=== PATIENT | male | born 1975 | race Caucasian/White ===

== ENCOUNTER 2020-12-04 16:30 | Observation (INO) | payer SELFPAY ==
--- NOTE | ~2020-12-04 | XR_ITS ---
XR chest 2V DATE: 12/04/2020 18:05 INDICATION: Weakness TECHNIQUE: AP and lateral views COMPARISON: None available FINDINGS: Normal heart size. No hilar or mediastinal enlargement. Bilateral hyperinflation. No pulmon yesi infiltrate or consolidation, pleural effusion or pulmonary vascular congestion or pneumothorax. IMPRESSION: No active cardiopulmonary disease Reviewed, dictated and finalized at location [facility].
--- NOTE | ~2020-12-04 | CT_ITS ---
EXAMINATION: CT abdomen pelvis w con DATE: 12/04/2020 18:10 INDICATION: Abdominal pain, nausea, vomiting. Diabetes mellitus. Drug user. TECHNIQUE: Computed tomography (CT) of the abdomen and pelvis was performed without intravenous contr ast. Automated exposure control and iterative reconstruction technique were employed. Exam dose: 292 .65 mGy-cm total exam DLP. COMPARISON: None. FINDINGS: The lung bases are clear of infiltrate or consolidation. Normal heart size. No pericardial or pleural effusion. Small sliding hiatal hernia. There are numerous radiopaque sutures in the small bowel in the left mid to lower abdomen. 1 small florinda wel segment in this region measures up to 2.3 cm diameter, with a prominent fluid level. This may be chronic postoperative change or might be secondary to mild partial small bowel obstruction, possibly due to adhesions. The small and large bowel otherwise are of normal caliber. There is a prominent amount of fecal mater ial within the colon but no bowel obstruction. There is diverticulosis of the colon but no evidence o f diverticulitis. No CT evidence of appendicitis. The urinary bladder and prostate gland are unremarkable. The liver, gallbladder, bile ducts, spleen, pancreas and pancreatic duct as well as adrenal glands an d right kidney are unremarkable. There is incomplete rotation of the left kidney with the left renal pelvis directed anteroposteriorly . No urinary tract calculus or hydroureteronephrosis is evident. Included skeletal structures are unremarkable. IMPRESSION: Postoperative change of small bowel in the mid to lower left abdomen. Focal relative dilatation and air-fluid level in the postoperative area, which may be due to chronic postoperative change or possibly mild partial obstruction secondary to adhesion Reviewed, dictated and finalized at [facility]. Reviewed, dictated and finalized at location A. IMPRESSION: Postoperative change of small bowel in the mid to lower left abdom en. Focal relative dilatation and air-fluid level in the postoperative area, which may be due to chronic postoperative change or possibly mild partial obstruction secondary to adhesion
--- NOTE | 2020-12-04 16:36 | ECG_ITS ---
Measurements Intervals [place] Rate: 98 P: 76 DE: 148 QRS: 107 QRSD: 105 T: 78 QT: 398 QTc: 509 Interpretive Statements SINUS RHYTHM POSSIBLE LEFT ATRIAL ENLARGEMENT RIGHT AXIS DEVIATION INCOMPLETE RIGHT BUNDLE BRANCH BLOCK NONSPECIFIC ST ELEVATION IN ANTEROLAT/INF LEADS BASELINE ARTIFACT- I, II, III, V1-V2 BORDERLINE ECG Electronically Signed On 12-05-2020 19:27:11 CDT by Levar Lovelace D.O.
[2020-12-04] MEDS: SODIUM CHLORIDE 0.9% IV 1,000 ML 999 ML IV CONT (16:56)
[2020-12-04] MEDS: ONDANSETRON INJ 4 MG/2 ML VIAL IV PUSH ×2 (16:57→23:36)
[2020-12-04 16:58] VITALS: BP 176/106; PULSE 88; RESP 20; TEMP 36.2; O2SAT 100
[2020-12-04 17:08] LABS: Basophils Absolute Auto 0.05 K/mm3 (0.00-0.10); Basophils Percent Auto 0.4 % (0.0-1.0); Eosinophils Absolute Auto 0.04 K/mm3 (0.02-0.50); Eosinophils Percent Auto 0.3 % (1.0-6.0); Hemoglobin 16.3 g/dL (14.0-18.0); Immature Granulocyte Absolute 0.05 K/mm3 (0.00-0.00); Immature Granulocyte Percent A 0.4 % (0.0-0.0); Lymphocytes Absolute Auto 1.75 K/mm3 (1.10-4.50); Lymphocytes Percent Auto 14.1 % (18.0-42.0); Mean Corpuscular HGB Conc 34.7 g/dL (32.0-36.0); Mean Corpuscular Hemoglobin 30.8 pg (27.0-31.0); Mean Corpuscular Volume 88.8 fL (78.0-102.0); Mean Platelet Volume 9.1 fl (8.7-11.0); Monocytes Percent Auto 6.4 % (2.0-11.0); Neutrophils Absolute Auto 9.7 K/mm3 (1.7-7.2); Neutrophils Percent Auto 78.4 % (50.0-70.0); Platelet Count Result 406 K/mm3 (150-420); Red Blood Count 5.29 M/mm3 (4.70-6.10); Red Cell Distribution Width 12.1 % (11.6-14.4); White Blood Count 12.4 K/mm3 (4.8-10.8)
[2020-12-04 17:21] LABS: INR 1.1; Partial Thromboplastin Time 25.2 SEC (23.90-30.70); Prothrombin Time 11.4 Seconds (9.50-12.10)
[2020-12-04 17:24] LABS: Alanine Aminotransferase 79 U/L (16-63); Albumin Level 4.1 g/dL (3.4-5.0); Alkaline Phosphatase 186 U/L (46-116); Anion Gap 16 mmol/L (8-16); Aspartate Amino Transferase 30 U/L (15-37); Bilirubin,Total 2.5 mg/dL (0.00-1.00); Blood Urea Nitrogen 22 mg/dL (7-18); Calcium 10.1 mg/dL (8.5-10.1); Carbon Dioxide 25 mmol/L (21-32); Chloride 101 mmol/L (98-108); Estimated CRCL calculation 63 ml/min; Estimated Glomerular Filt Rate > 60; Glucose 272 mg/dL (70-99); Lipase 96 U/L (73-393); Osmolality Calculated 307 mOsm/kg (285-295); Potassium 3.5 mmol/L (3.5-5.1); SARS-CoV-2 Ag Negative (Negative); Sodium 142 mmol/L (136-145); Total Protein 8.4 g/dL (6.4-8.2); Troponin I 7.1 ng/L (0.00-60.4)
--- NOTE | 2020-12-04 17:34 | ED.NAVMDI ---
HPI - Nausea/Vomiting/Diarrhea General Chief complaint: Nausea/Vomiting/Diarrhea Stated complaint: nausea Source: patient Mode of arrival: EMS Limitations: no limitations History of Present Illness HPI Narrative: this is a 45-year-old gentleman that was at a rest stop in his pickup truck when the windows closed and reported to the EMS that he was having nausea vomiting and was feeling shaky and weak, denied any shortness of breath does have some weakness belly pain was elicited with palpation had few episodes of vomiting with nausea patient is a known drug user, with no flank pain and O2 no diarrhea constipation no chest pain no fever chills. with a known history of diabetes currently on Lantus insulin. MD elicited complaint: nausea, vomiting and abdominal pain Onset (ago): hour(s) Associated nausea: Yes Associated abdominal pain: Yes Location of pain: diffuse Pain consistency: intermittent Severity: moderate Pain scale (0-10): 5 Related Data Home Medications Medication Instructions Recorded Confirmed insulin aspart U-100 [Novolog 1 sliding scale dose SUBCUT 12/04/20 12/04/20 U-100 Insulin aspart] USEASDIRECTD insulin detemir U-100 [Levemir 10 unit SUBCUT HS 12/04/20 12/04/20 FlexTouch U-100 Insuln] Allergies Allergy/AdvReac Type Severity Reaction Status Date / Time No Known Allergies Allergy Verified 12/04/20 17:11 Review of Systems Review of Systems: All systems reviewed & are unremarkable except as noted in HPI and below PMFSH Past Medical History Medical History (Updated 12/04/20 @ 19:17 by Carlos Payne MD) Diabetes mellitus Drug abuse HTN (hypertension) Exam Const: General: no acute distress and alert Orientation/consciousness: patient oriented x3 HENMT: Head: normal to inspection Eyes: Pupils: Equal, round and reactive pupils present Neck: Neck: normal visual inspection, no lymphadenopathy and no meningeal signs Chest: Chest palpation & inspection: normal inspection of the chest Resp: Effort & Inspection: normal respiratory effort Auscultation: clear to auscultation bilaterally Cardio: Rate: regular rate Rhythm: regular rhythm GI: GI Palp: Yes Soft to palpation and Yes Tenderness to palpation present (GI) Back/Spine/Pelvis: Back: no CVA tenderness Skin: General skin exam: normal color Rashes: no rashes Neuro: General: patient oriented x3, moves all extremities, no meningeal signs and no focal motor deficits Extrem: General: normal to inspection and no pedal edema Psych: Mental Status: mental status grossly normal Affect: normal affect Course Course Emergency Course: Lab findings and CT scan and x-ray findings were reviewed with patient, patient received IV fluids and IV Zofran which his nausea has improved. Vital Signs Vital signs: Vital Signs Temperature 36.2 C L 12/04/20 16:58 Pulse Rate 88 12/04/20 16:58 Respiratory Rate 20 12/04/20 16:58 Blood Pressure 176/106 H 12/04/20 16:58 Pulse Oximetry 100 12/04/20 16:58 Temperature 36.2 C L 12/04/20 16:58 Pulse Rate 88 12/04/20 16:58 Respiratory Rate 20 12/04/20 16:58 Blood Pressure 176/106 H 12/04/20 16:58 Pulse Oximetry 100 12/04/20 16:58 MDM - Nausea/Vomiting/Diarrhea Lab Data Result diagrams: 12/04/20 16:56 12/04/20 16:56 Labs: Lab Results 12/04/20 12/04/20 12/04/20 Range/Units 16:56 16:56 16:56 WBC 12.4 H (4.8-10.8) K/mm3 RBC 5.29 (4.70-6.10) M/mm3 Hgb 16.3 (14.0-18.0) g/dL Hct 47.0 (40.0-54.0) % MCV 88.8 (78.0-102.0) fL MCH 30.8 (27.0-31.0) pg MCHC 34.7 (32.0-36.0) g/dL RDW 12.1 (11.6-14.4) % Plt Count 406 (150-420) K/mm3 MPV 9.1 (8.7-11.0) fl Immature Gran % (Auto) 0.4 H (0.0-0.0) % Neut % (Auto) 78.4 H (50.0-70.0) % Lymph % (Auto) 14.1 L (18.0-42.0) % Trigg % (Auto) 6.4 (2.0-11.0) % Eos % (Auto) 0.3 L (1.0-6.0) % Baso % (Auto) 0.4 (0.0-1.0) % Lymph
[2020-12-04 17:40] LABS: Add Urine Microscopic? YES; Appearance Urine Clear (Clear); Bilirubin Urine Negative (Negative); Blood Urine Negative (Negative); Color Urine Light Yellow (Yellow); Glucose Urine UA 3+ (Negative); Ketones Urine 3+ (Negative); Leukocyte Esterase Ur Negative (Negative); Nitrate Urine Negative (Negative); Protein Urine Negative (Negative); Specific Grav Ur 1.015 (1.010-1.020); Urobilinogen Urine 0.2 mg/dL (0.2-1.0); pH Urine >=9.0 (5.0-8.0)
[2020-12-04 17:46] LABS: Amorphous Sediment Urine Few; Bacteria Urine Trace /hpf; RBC Urine 0-2 /hpf (0-2); Squamous Epithelial Cell Urine Rare /hpf (Few); WBC Urine 0-3 /hpf (0-3)
[2020-12-04 17:47] LABS: Amphetamine Screen Urine Positive (Negative); Barbiturate Screen Urine Negative (Negative); Benzodiazepines Screen Urine Negative (Negative); Cannabinoid Screen Urine Positive (Negative); Cocaine Screen Urine Negative (Negative); Methadone Screen Urine Negative (Negative); Opiate Screen Urine Negative (Negative); Phencyclidine Screen Urine Negative (Negative)
[2020-12-04 18:00] VITALS: BP 163/112; PULSE 88; RESP 20; O2SAT 100
[2020-12-04 19:00] VITALS: BP 168/108; PULSE 83; RESP 20; O2SAT 100
[2020-12-04 20:00] VITALS: BP 164/103; PULSE 95; RESP 22; TEMP 35.9; O2SAT 100
[2020-12-04 20:01] LABS: Reflex Lactic Acid Yes or No Add Lactic
[2020-12-04] MEDS: SODIUM CHLORIDE 0.9% IV 1,000 ML 100 ML IV CONT (20:16)
[2020-12-04] MEDS: MORPHINE SULFATE (*CRX) 2 MG/ML INJ IV PUSH (20:18)
--- NOTE | 2020-12-04 20:52 | PC.NURSE ---
Patient admitted to room 204 from the ER , is alert and oriented x 3, pain med given, oriented to room and call light, NPO at this time.
[2020-12-04 20:55] VITALS: BMI 19.0
[2020-12-04 20:58] LABS: Lactic Acid 2.5 mmol/L (0.4-2.0)
[2020-12-04 20:59] VITALS: BMI 19.0
--- NOTE | 2020-12-04 21:03 | PC.NURSE ---
pharmacy called to ask about switching levemir to lantus, dr notified they need a doctors order to do so
[2020-12-04 21:08] LABS: Glucose Point of Care 206 mg/dl (65-105)
[2020-12-04] MEDS: INSULIN GLARGINE (*BKC) 100 UNITS/ML 10 UNITS SUB-Q (21:33)
[2020-12-05] VITALS: BP 157/108; PULSE 88; RESP 20; TEMP 36.6; O2SAT 95
--- NOTE | 2020-12-05 00:45 | PC.NURSE ---
Pt sitting upright in bed. wanting swabs to wet his mouth. Pt c/o severe nausea and wanting more nausea med. Advised pt. that he has already had dose of antinausea med and unable to give more at this time. Call placed to Dr Payne and order received to place NG tube. Pt then adamently refused NG tube and states I will not have one of those . Call back to Dr Pyane about pt refusal and ERP stated he can sign AMA if he wants. No new orders received.
[2020-12-05 04:00] VITALS: BP 151/110; PULSE 88; RESP 20; TEMP 37.1; O2SAT 100
[2020-12-05] MEDS: SODIUM CHLORIDE 0.9% IV 1,000 ML 100 ML IV CONT (05:09)
[2020-12-05 05:57] LABS: Basophils Absolute Auto 0.04 K/mm3 (0.00-0.10); Basophils Percent Auto 0.4 % (0.0-1.0); Eosinophils Absolute Auto 0.04 K/mm3 (0.02-0.50); Eosinophils Percent Auto 0.4 % (1.0-6.0); Hematocrit 42.7 % (40.0-54.0); Hemoglobin 14.3 g/dL (14.0-18.0); Immature Granulocyte Absolute 0.04 K/mm3 (0.00-0.00); Immature Granulocyte Percent A 0.4 % (0.0-0.0); Lymphocytes Absolute Auto 1.99 K/mm3 (1.10-4.50); Lymphocytes Percent Auto 18.8 % (18.0-42.0); Mean Corpuscular HGB Conc 33.5 g/dL (32.0-36.0); Mean Corpuscular Hemoglobin 30.5 pg (27.0-31.0); Mean Platelet Volume 9.3 fl (8.7-11.0); Monocytes Absolute Auto 0.74 K/mm3 (0.10-0.90); Neutrophils Absolute Auto 7.7 K/mm3 (1.7-7.2); Platelet Count Result 377 K/mm3 (150-420); Red Blood Count 4.69 M/mm3 (4.70-6.10); Red Cell Distribution Width 12.5 % (11.6-14.4); White Blood Count 10.6 K/mm3 (4.8-10.8)
[2020-12-05 06:25] LABS: Alanine Aminotransferase 59 U/L (16-63); Albumin Level 3.5 g/dL (3.4-5.0); Alkaline Phosphatase 155 U/L (46-116); Anion Gap 14 mmol/L (8-16); Aspartate Amino Transferase 15 U/L (15-37); Bilirubin,Total 2.9 mg/dL (0.00-1.00); Calcium 8.8 mg/dL (8.5-10.1); Carbon Dioxide 23 mmol/L (21-32); Chloride 106 mmol/L (98-108); Estimated CRCL calculation 72 ml/min; Estimated Glomerular Filt Rate > 60; Glucose 172 mg/dL (70-99); Potassium 3.7 mmol/L (3.5-5.1); Sodium 143 mmol/L (136-145); Total Protein 7.2 g/dL (6.4-8.2)
[2020-12-05 06:30] LABS: Blood Urea Nitrogen 23 mg/dL (7-18); Osmolality Calculated 303 mOsm/kg (285-295)
--- NOTE | 2020-12-05 06:59 | PM.EVENT ---
Event Note Event Note Event Note: 45-year-old gentleman was called because of increased nausea and vomiting, attempted to place an NG tube but the patient adamantly refused stating that he would rather than have an NG tube. Advised to continue to monitor and continue Zofran.
--- NOTE | 2020-12-05 07:40 | PC.NURSE ---
Patient resting comfortably in bed with no c/o pain or discomfort at this time.
[2020-12-05 08:00] VITALS: BP 162/113; PULSE 91; RESP 18; TEMP 36.9; O2SAT 100
[2020-12-05 08:04] LABS: Glucose Point of Care 148 mg/dl (65-105)
[2020-12-05] MEDS: ENOXAPARIN 40 MG/0.4 ML SYRINGE SUB-Q (08:25)
[2020-12-05] MEDS: amLODIPine BESYLATE 5 MG TABLET 10 MG PO (11:44)
[2020-12-05 11:52] LABS: Glucose Point of Care 121 mg/dl (65-105)
--- NOTE | 2020-12-05 12:02 | PM.SD2 ---
Same Day Admit/Disch: HPI History of Present Illness Chief complaint: nausea <ENEIDA Blake - Last Filed: 12/05/20 12:44> Narrative: Robert Ramirez is a 45 year old male admitted for Observation. Pt admits to using IV speed. He states that he uses before work. He states that when he uses he becomes hot or overheated and usually this goes away with being in an air conditioned room or his truck with the AC on. Pt states that this time he was unable to cool down and became nauseated and vomited all over the inside of his truck. Since he was feeling worse he called for EMS and was brought to our ER. Pt admits to being a diabetic however he has not seen a PCP in a long time. Pt denies CP, SOB, musculoskeletal problems, neurologic problems, changes to vision and hearing, other sensory deficits. Admits to diarrhea and scars/scabs on his lower legs and right arm from long history of IV drug use. <ENEIDA Blake - Last Filed: 12/05/20 12:44> [facility] Past Medical History Medical History: Medical History Diabetes mellitus Drug abuse HTN (hypertension) <ENEIDA Blake - Last Filed: 12/05/20 12:44> Social History Social History: Social History Smoking status: Never smoker Second hand tobacco smoke exposure: No Alcohol intake: current Substance use: current Substance use type: marijuana and methamphetamine Spiritual care concerns: No <ENEIDA Blake - Last Filed: 12/05/20 12:44> Same Day Admit/Disch: Med Pre-admit Medications Home Medications: Home Medications Medication Instructions Recorded Confirmed Type Levemir FlexTouch U-100 Insuln 10 unit SUBCUT HS 12/04/20 12/04/20 History insulin aspart U-100 [Novolog 1 sliding scale dose SUBCUT 12/04/20 12/04/20 History U-100 Insulin aspart] USEASDIRECTD amlodipine [Norvasc] 10 mg PO QAM #30 tablet 12/05/20 Rx <JANINA BlakeC - Last Filed: 12/05/20 12:44> Exam Const: General: cooperative, comfortable, no acute distress, alert, awake, Physically active and ill appearing (r/t drug abuse) <JANINA BlakeC - Last Filed: 12/05/20 12:44> Nutritional Appearance: thin <JANINA BlakeC - Last Filed: 12/05/20 12:44> Resp: Effort & Inspection: normal respiratory effort <JANINA BlakeC - Last Filed: 12/05/20 12:44> Auscultation: clear to auscultation bilaterally <ENEIDA Blake - Last Filed: 12/05/20 12:44> Cardio: Rate: regular rate <ENEIDA Blake - Last Filed: 12/05/20 12:44> Heart sounds: S1 normal heart sound present and S2 normal heart sound present <ENEIDA Blake - Last Filed: 12/05/20 12:44> GI: GI Palp: Yes Soft to palpation and No Tenderness to palpation present (GI) <JANINA BlakeC - Last Filed: 12/05/20 12:44> Auscultation: normal bowel sounds <ENEIDA Blake - Last Filed: 12/05/20 12:44> Skin: General skin exam: normal color and dry skin <ENEIDA Blake - Last Filed: 12/05/20 12:44> Neuro: General: oriented to person, oriented to place and oriented to time <ENEIDA Blake - Last Filed: 12/05/20 12:44> Cranial nerves: Yes CN's II-XII intact bilaterally (grossly intact) <ENEIDA Blake - Last Filed: 12/05/20 12:44> Cognition (Neuro): normal cognition <JANINA BlakeC - Last Filed: 12/05/20 12:44> Speech: normal speech <ENEIDA Blake - Last Filed: 12/05/20 12:44> Gait exam (Neuro): Normal gait present <ENEIDA Blake - Last Filed: 12/05/20 12:44> Motor exam (neuro): 5/5 motor strength present throughout <ENEIDA Blake - Last Filed: 12/05/20 12:44> Extrem: General: full ROM and no pedal edema <ENEIDA Blake - Last Filed: 12/05/20 12:44> Psych: Appearance: disheveled <ENEIDA Blake - Last Filed: 12/05/20 12:44> Mental Status: mental status g
--- NOTE | 2020-12-05 13:25 | PC.NURSE ---
Patient discharged after voicing feeling good and wanting to leave. No c/o pain or discomfort upon discharge and IV site discontinued and removed prior to discharge. Instructions given and patient acknowledged understanding. Patient instructed to check with insurance to find a primary physician and given information on Methamphetamine abuse and encouraged to get help. Staff escorted patient to main entrance on own power and proceeded to walk down road. Patient did not have a ride at discharge.
--- NOTE | 2020-12-06 12:58 | PC.NURSE ---
Pt listed no phone number for discharge call back.
== END 2020-12-05 13:25 | disposition home or self-care (01) ==
LOC: CHSED 16:35 → CHS2ND 19:14
PROVIDERS: Admitting Provider Emergency Medicine; Emergency Provider Emergency Medicine; Visit Provider Emergency Medicine
DX: R11.0 Nausea (principal); K56.600 Partial intestinal obstruction, unspecified as to cause; E11.9 Type 2 diabetes mellitus without complications; I10 Essential (primary) hypertension; F19.10 Other psychoactive substance abuse, uncomplicated; Z20.822 Contact with and (suspected) exposure to COVID-19
CPT/HCPCS: 36415; 71046; 74177; 80053; 80307; 81001; 82948; 83605; 83690; 84484; 85025; 85610; 85730; 87426; 93005; 96361; 96372; 96374; 96375; 96376; 99285; A9270; C9803; G0378; J1650; J1815; J2270; J2405; J7030; Q9967